=== PATIENT | male | born 1990 | race Caucasian/White ===

== ENCOUNTER 2018-01-01 14:10 | Observation (INO) | payer OTHER ==
[~2018-01-01] VITALS: Ht 172.7 cm; Wt 79.0 kg
[~2018-01-01 14:10] MED LIST: COLACE100 MG PO; FLEXERIL10 MG PO; FLUOXETINE HCL40 MG PO; LORAZEPAM1 MG PO; MEDROL DOSEPAK4 MG PO; MOTRIN600 MG PO; NAPROXEN500 MG PO; NOHOMEMEDS; PERCOCET 5/31 TABLET PO; PREDNISONE20 MG PO; PROCTOFOAM-HC10 GM PR; SKELAXIN800 MG PO; TORADOL10 MG PO; ZOFRAN ODT4 MG PO
[2018-01-01] MEDS ORDERED: MOTRIN800 MG PO (16:51)
[2018-01-01] MEDS ORDERED: METHADONE 22 MG/1 ML PO (16:53)
[2018-01-01 16:56] LABS: BASOPHIL COUNT 0.1 K/uL (0-0.1); EOSINOPHIL (%) 6.9 % (0-5); EOSINOPHIL COUNT 0.6 K/uL (0-0.3); HEMATOCRIT 45.5 % (38.0-50.0); HEMOGLOBIN 15.4 G/DL (12.5-16.6); IMMATURE GRANULOCYTE (%) 0.3 % (0.0-0.7); LYMPHOCYTE (%) 23.3 % (15-42); LYMPHOCYTE COUNT 1.9 K/uL (1.0-2.8); MCH 28.6 PG (29.0-34.0); MCHC 33.8 G/DL (30.0-36.0); MCV 84.4 FL (86-99); MONOCYTE (%) 5.5 % (3-12); MONOCYTE COUNT 0.4 K/uL (0-0.8); PLATELET COUNT 229 K/uL (156-360); RBC DIS.WIDTH-CV 11.9 % (11.8-14.6); RBC DIS.WIDTH-SD 35.9 % (39-53); RED BLOOD COUNT 5.39 M/uL (4.00-5.50); WHITE BLOOD COUNT 7.9 K/uL (4.1-10.2)
[2018-01-01 17:07] LABS: ALBUMIN 4.4 g/dL (3.2-4.8); CHLORIDE 106 mEq/L (99-109); POTASSIUM 4.7 mEq/L (3.7-5.4); SODIUM 140 mEq/L (136-147)
[2018-01-01 17:10] LABS: GLUCOSE 92 mg/dL (70-99); TOTAL PROTEIN 7.1 g/dL (6.4-8.3)
[2018-01-01 17:11] LABS: TOTAL BILIRUBIN 0.6 mg/dL (0.0-1.0)
[2018-01-01 17:13] LABS: ALKALINE PHOSPHATASE 87 IU/L (3-129); CREATININE 0.8 mg/dL (0.6-1.3); GFR ESTIMATE (CALCULATED) > 59 mL/min/ (58.99-99999)
[2018-01-01 17:14] LABS: UREA NITROGEN (BUN) 8 mg/dL (9-23)
[2018-01-01 17:15] LABS: AST (GOT) 25 IU/L (2-34)
[2018-01-01 17:16] LABS: ALT (GPT) 18 IU/L (3-49)
[2018-01-01 17:30] LABS: ERTH.SED.RATE 6 MM/HR (0-15)
[2018-01-01 18:11] LABS: C-REACTIVE PROTEIN 7.4 MG/L (0-10)
[2018-01-02 00:04] VITALS: BP 120/59
[2018-01-02 04:26] VITALS: BP 130/66
[2018-01-02 05:07] LABS: BENZODIAZEPINES, URINE SCREEN Negative (200 ng/mL)
[2018-01-02 07:10] VITALS: BP 114/75
== END 2018-01-02 13:24 | disposition home or self-care (01) ==
LOC: EME 14:10 → EDOF 17:24 → 5WEST 17:24 → ENRESERV 17:29 → 5WEST 19:05
PROVIDERS: Emergency Medicine; Internal Medicine
DX: G43.B0 Ophthalmoplegic migraine, not intractable (principal); H49.00 Third [oculomotor] nerve palsy, unspecified eye; F42.9 Obsessive-compulsive disorder, unspecified; F17.200 Nicotine dependence, unspecified, uncomplicated; Z88.0 Allergy status to penicillin; Z88.2 Allergy status to sulfonamides
CPT/HCPCS: 70450; 80053; 80306 90; 85025; 85652; 86038; 86140; 99281; 99285; G0378